=== PATIENT | female | born 2000 | race Two or more races ===

== ENCOUNTER 2022-08-07 06:24 | Inpatient (IN) | payer MEDICAID ==
[2022-08-07] MEDS ORDERED: Nalbuphine 10 MG/0.5 ML Syringe IVPUSH PRN (06:55)
[2022-08-07] MEDS: Lactated Ringers 1,000 ML IV SCH ×2 (07:10→10:52)
[2022-08-07] MEDS ORDERED: Oxytocin/Lactated Ringers 10 UNIT/1,000 ML BAG IV SCH ×2 (08:30→09:45)
[2022-08-07] MEDS ORDERED: Sodium Chloride 0.9% 10 ML Syringe FLUSH SCH (09:00)
[2022-08-07] MEDS ORDERED: Lidocaine 1% 50 ML MDV INJECT ONE (09:33)
[2022-08-07] MEDS: Oxytocin/Lactated Ringers 10 UNIT/1,000 ML BAG IV ONE ×2 (09:35→09:38)
[2022-08-07] MEDS ORDERED: Citric Acid/Sodium Citrate Solution 30 ML Cup PO ONE (11:14)
[2022-08-07] MEDS ORDERED: Azithromycin 500 MG in Sodium Chloride 0.9% 250 ML IV ONE (11:14)
[2022-08-07] MEDS ORDERED: Metoclopramide 10 MG/2 ML SDV IVPUSH ONE (11:59)
[2022-08-07] MEDS ORDERED: Benzocaine/Menthol 20%-0.5% Spray 78 GM Cannister TOP PRN (12:57)
[2022-08-07] MEDS ORDERED: Docusate Sodium 100 MG Cap PO PRN (12:57)
[2022-08-07] MEDS ORDERED: Witch Hazel Medicated Pads 40/Jar TOP PRN (12:57)
[2022-08-07] MEDS ORDERED: Misoprostol 200 MCG Tab ONE (13:26)
[2022-08-07] MEDS ORDERED: Misoprostol 200 MCG Tab PO STA (13:33)
[2022-08-07] MEDS ORDERED: ceFAZolin 2 GM in Sodium Chloride 0.9% 50 ML IV ONE (13:33)
[2022-08-07] MEDS: Acetaminophen 325 MG Tab PO PRN (13:57)
[2022-08-07] MEDS: Ibuprofen 600 MG Tab PO PRN (13:59)
[2022-08-08] MEDS: Ibuprofen 600 MG Tab PO PRN ×3 (00:50→20:30)
[2022-08-08] MEDS: Acetaminophen 325 MG Tab PO PRN ×3 (00:55→20:29)
== END 2022-08-09 10:40 | disposition home or self-care (01) | DRG 807 ==
LOC: JD.OBCHECK 06:24 → JD.OB 09:01 → JD.OBCHECK 09:02 → JD.OB 09:03 → OBSVTOIN 12:01 → JD.OB 12:02
PROVIDERS: ADMIT Obstetrics & Gynecology; ATTEND Obstetrics & Gynecology
PROC: 10D07Z6 Extraction of Products of Conception, Vacuum, Via Natural or Artificial Opening (ICD-10-PCS; principal; 2022-08-07)
PROC: 10H07YZ Insertion of Other Device into Products of Conception, Via Natural or Artificial Opening (ICD-10-PCS; 2022-08-07)
PROC: 10907ZC Drainage of Amniotic Fluid, Therapeutic from Products of Conception, Via Natural or Artificial Opening (ICD-10-PCS; 2022-08-07)
DX: O76 Abnormality in fetal heart rate and rhythm complicating labor and delivery (principal); Z37.0 Single live birth; O70.0 First degree perineal laceration during delivery; Z3A.38 38 weeks gestation of pregnancy
CPT/HCPCS: 36415; 59025; 59409; 82565; 84450; 84460; 85025; 86592; 86850; 86900; 86901; A9270-GY; J0690; J2300; J2590; J7120